=== PATIENT | male | born 1940 | race Caucasian/White ===

== ENCOUNTER 2017-07-28 13:05 | Outpatient (CLI) | payer MEDICARE, OTHER | END 2017-07-28 13:06 | disposition home or self-care (01) | LOC: CP 13:05 | PROVIDERS: ATTEND Internal Medicine Critical Care Medicine | DX: J67.9 Hypersensitivity pneumonitis due to unspecified organic dust (principal) | CPT/HCPCS: 94010; 94727; 94729 ==

== ENCOUNTER 2017-10-26 12:35 | Outpatient (CLI) | payer MEDICARE, OTHER ==
--- NOTE | 2017-10-28 11:05 | PFT ---
PATIENT HISTORY: HEIGHT: 67 IN WEIGHT:170 SMOKER: NO HOW LON PACK YEARS PACKS PER DAY PRODUCTIVE COUGH: LUNG DISEASE: PHYSICIAN INTERPRETATION FINAL REPORT: DLCO only was performed. Diffusing capacity is decreased at 61%. IMPRESSION reduced diffusing capacity. Rule out interstitial lung disease Project Technician: ALISA Ballet Master/Mistress: ALISA BLEVINS
== END 2017-10-26 12:36 | disposition home or self-care (01) ==
LOC: CP 12:35
PROVIDERS: ATTEND Internal Medicine
DX: J67.9 Hypersensitivity pneumonitis due to unspecified organic dust (principal)
CPT/HCPCS: 94729

== ENCOUNTER 2018-01-26 12:28 | Outpatient (CLI) | payer MEDICARE, OTHER | END 2018-01-26 12:29 | disposition home or self-care (01) | LOC: RAD 12:28 | PROVIDERS: ATTEND Internal Medicine Critical Care Medicine | DX: R06.00 Dyspnea, unspecified (principal); J98.4 Other disorders of lung | CPT/HCPCS: 71046 ==

== ENCOUNTER 2018-05-02 13:12 | Outpatient (CLI) | payer MEDICARE, OTHER ==
--- NOTE | 2018-05-02 15:08 | RAD ---
TWO VIEWS CHEST: Date: 05-02-18 Comparison: 06-09-17 History: Shortness of breath FINDINGS: There are increased linear interstitial densities noted throughout both lungs, chronic and grossly un changed. The lungs are hyperinflated suggested air trapping. There is no pneumothorax or pleural flui d and no focal consolidation or alveolar edema. IMPRESSION: Interstitial prominence and pulmonary hyperinflation, stable. Findings suggest COPD in the proper cli nical setting. No acute findings are noted. POS: DOUG
== END 2018-05-02 13:13 | disposition home or self-care (01) ==
LOC: RAD 13:12
PROVIDERS: ATTEND Internal Medicine Critical Care Medicine
DX: R06.00 Dyspnea, unspecified (principal); R91.8 Other nonspecific abnormal finding of lung field
CPT/HCPCS: 71046

== ENCOUNTER 2018-11-01 13:22 | Outpatient (CLI) | payer MEDICARE, OTHER ==
--- NOTE | 2018-11-01 16:01 | RAD ---
CHEST TWO VIEWS: HISTORY: Dyspnea. COMPARISON: 06/16/2018 FINDINGS: Slight elongation of the aorta. Normal cardiac silhouette. Pulmonary vessels and hilum are normal. Costophrenic angles are clear. Hyperinflation with chronic changes. No masses or consolidation. N o pneumothorax or osseous abnormalities. IMPRESSION: 1. Hyperinflation. 2. Chronic obstructive pulmonary disease. 3. Chronic changes. 4. No acute process. POS: C
== END 2018-11-01 13:23 | disposition home or self-care (01) ==
LOC: RAD 13:22
PROVIDERS: ATTEND Internal Medicine Critical Care Medicine
DX: R06.00 Dyspnea, unspecified (principal); R91.8 Other nonspecific abnormal finding of lung field; J44.9 Chronic obstructive pulmonary disease, unspecified
CPT/HCPCS: 71046

== ENCOUNTER 2019-07-11 10:11 | Outpatient (CLI) | payer MEDICARE, OTHER ==
--- NOTE | 2019-07-11 11:58 | ULT ---
BILATERAL RENAL ULTRASOUND: HISTORY: Chronic renal disease. FINDINGS: The right kidney measures 8.3 cm in length and the left kidney measures 11 cm in length. No hydroneph rosis is seen on either side. There is an 11 mm cyst in the left kidney. The urinary bladder has a vo lume of 56 mL with a wall thickness of 5 mm. Incidental note is made of multiple shadowing gallstones, massive splenomegaly, measuring 22.2 cm, an d an enlarged prostate, measuring 5.4 x 5.1 x 4.3 cm. IMPRESSION: 1. Left renal cyst. 2. Enlarged prostate. 3. Gallstones. 4. Splenomegaly. POS: OFF
== END 2019-07-11 10:12 | disposition home or self-care (01) ==
LOC: BICULT 10:11
PROVIDERS: ATTEND Internal Medicine Nephrology
DX: I12.9 Hypertensive chronic kidney disease with stage 1 through stage 4 chronic kidney disease, or unspecified chronic kidney disease (principal); N18.3 Chronic kidney disease, stage 3 (moderate); N28.1 Cyst of kidney, acquired; R16.1 Splenomegaly, not elsewhere classified; K80.80 Other cholelithiasis without obstruction; N40.0 Benign prostatic hyperplasia without lower urinary tract symptoms
CPT/HCPCS: 36415; 76770; 80048; 82570; 84156

== ENCOUNTER 2019-08-01 08:46 | Outpatient (CLI) | payer MEDICARE, OTHER ==
--- NOTE | 2019-08-01 09:44 | CT ---
CT abdomen and pelvis noncontrast HISTORY: Flank pain. Constipation. FINDINGS: Each renal collecting system, ureter, and urinary bladder are decompressed. There is a 0.1 cm calcification within a nondilated calyx at the anterior aspect of the right kidney. No stones on the left. Some irregularity of the anterior urinary bladder wall is similar in appearance to the prio r study. Prostate gland measures up to 6.6 cm transverse diameter. Bladder wall thickening has progressed slightly since the prior study and is likely related to chronic bladder outlet obstruction . Prominent calcification throughout the arterial structures. Lack of contrast decreases sensitivity of exam for other abnormalities. Appropriate amount of stool t hroughout the colon. Scattered diverticula of the colon without adjacent inflammation. No evidence of bowel obstruction. The 2.1 cm cyst within the anterior segment right liver lobe is stable. Spleen now measures up to 20. 5 cm greatest diameter. There is now anterior wedging of the T12 vertebral body with loss of height by approximately 30%. Minimal retropulsion of the superior endplate. It was not present on the prior study. IMPRESSION: Tiny nonobstructing right renal calculus. No evidence of stool retention or bowel obstruction. Severe splenomegaly. Cause is not evident. Chronic bladder outlet obstruction likely related to enlarged prostate gland. Diverticulosis. No evidence of diverticulitis. Interval compression of the T12 vertebral body with mild retropulsion of the superior endplate. Atherosclerosis.
== END 2019-08-01 08:47 | disposition home or self-care (01) ==
LOC: BICCT 08:46
PROVIDERS: ATTEND Family Medicine
DX: K59.00 Constipation, unspecified (principal); M54.5 Low back pain; N20.0 Calculus of kidney; R16.1 Splenomegaly, not elsewhere classified; K57.90 Diverticulosis of intestine, part unspecified, without perforation or abscess without bleeding; I70.90 Unspecified atherosclerosis; G95.20 Unspecified cord compression
CPT/HCPCS: 74176

== ENCOUNTER 2019-08-07 10:05 | Outpatient (CLI) | payer MEDICARE, OTHER ==
--- NOTE | 2019-08-07 12:10 | RAD ---
LUMBAR SPINE SERIES 2 VIEWS: Date: 08/07/19 HISTORY: Low back pain after lifting. COMPARISON: CT examination of abdomen and pelvis done 08/01/19. FINDINGS: The bones appear demineralized. The lumbar vertebral bodies are normal in height. Degenerative osteop hytes along the course of the spine are noted with mild disc narrowing at L5-S1. Moderate degenerativ e facet change of the lower lumbar spine seen. Once again, a wedge-shaped compression change of the T12 vertebral body is present with bony retropul valarie of the posterior superior margin of the vertebral body. The degree of compression appears slight ly increased as compared to the prior study. IMPRESSION: Suggestion of some worsening compression changes of the superior end plate compression fracture of T1 2. POS: DOUG
== END 2019-08-07 10:06 | disposition home or self-care (01) ==
LOC: BICRAD 10:05
PROVIDERS: ATTEND Family Medicine
DX: M54.5 Low back pain (principal); K59.00 Constipation, unspecified
CPT/HCPCS: 36415; 72100; 80053; 85025

== ENCOUNTER 2019-08-14 14:01 | Outpatient (CLI) | payer MEDICARE, OTHER ==
--- NOTE | 2019-08-14 16:06 | MRI ---
MRI lumbar spine noncontrast: HISTORY: Low back pain, after lifting COMPARISON: None FINDINGS: Diffuse T1 marrow signal hypointensity of the lumbar vertebra and the visualized sacrum. There is no significant STIR hyperintensity to suggest vertebral body edema. No MR evidence of ligamentous injury T1 marrow signal hypointensity with moderate loss of vertebral body height and retropulsion, along wi th T2 and STIR hyperintensity at the T12 level. Moderate compression fracture is noted, incompletely evaluated Appropriate signal intensity of the paraspinal muscles. Appropriate signal intensity visualized solid organs Unremarkable urinary bladder Conus medullaris terminates at the inferior aspect of L1 T11-T12: Mild central canal stenosis. There may be moderate bilateral foraminal narrowing T12 vertebral body moderate stenosis secondary to retropulsion. There is deformity of the distal thor acic cord. T12-L1:No significant central canal stenosis or significant neural foraminal narrowing L1-L2:No significant central canal stenosis or significant neural foraminal L2-L3:No significant central canal stenosis or significant neural foraminal narrowing L3-L4:Adequate disc hydration. Broad-based disc bulge, ligamentum flavum thickening and facet hypertr ophy result in mild central canal stenosis. Mild bilateral neural foraminal narrowing L4-L5:There appears to be edema in the disc space. Endplates are preserved. Broad-based disc bulge wi th minimal encroachment upon both subarticular zones. Mass effect without obscuration of either traversing L5 nerve root. Bilateral facet hypertrophy with fluid in both facet joints. Mild to modera te right and moderate left neural foraminal narrowing L5-S1:Desiccation with severe loss of disc space height. Broad-based disc bulge without any significa nt central canal stenosis. Moderate bilateral foraminal narrowing. 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 There does appear to be possible soft tissue signal intensity in the posterior urinary bladder. Nonspecific irregularity along the anterior bladder wall, near the bladder dome. Cystoscopy is recommended IMPRESSION: 1. Diffuse T1 marrow signal hypointensity. Correlate for a marrow infiltrative process versus anemia. 2. Moderate compression fracture at T12 with retropulsion. Moderate central canal stenosis. 3. Heterogeneous prostate gland. Correlate with serum PSA. 4. Abnormality with regards to the urinary bladder. Consider cystoscopy. CODE T Transcribed Date/Time: 08/14/2019 5:15 PM
== END 2019-08-14 14:02 | disposition home or self-care (01) ==
LOC: MRI 14:01
PROVIDERS: ATTEND Orthopaedic Surgery
DX: M54.5 Low back pain (principal); S22.089A Unspecified fracture of T11-T12 vertebra, initial encounter for closed fracture; M48.04 Spinal stenosis, thoracic region
CPT/HCPCS: 72148

== ENCOUNTER 2019-08-21 06:50 | Outpatient (CLI) | payer MEDICARE, OTHER ==
[2019-08-21 16:40] LABS: Hemoglobin 13.3 g/dL (14.0-18.0); Mean Corpuscular HGB CONC 32.4 g/dL (32.0-36.0); Mean Corpuscular Volume 83.3 fL (78.0-98.0); Mean Platelet Volume 9.6 fL (7.4-10.4); Platelet Count 256 thou/uL (130-400); RBC Distribution Width 20.6 % (11.5-14.5); Red Blood Cell (RBC) Count 4.92 mill/uL (4.70-6.10); White Blood Cell (WBC) Count 20.8 thou/uL (4.8-10.8)
[2019-08-21 16:50] LABS: Anion Gap 16 mmol/L (10-20); BUN (Urea Nitrogen) 28 mg/dL (8.4-25.7); Calc. Creatinine Clearance 0 mL/min (70-130); Calcium 9.4 mg/dL (7.8-10.44); Carbon Dioxide 21 mmol/L (23-31); Chloride 106 mmol/L (98-107); Estimated GFR-MDRD 37; Glucose 101 mg/dL (83-110); Potassium 4.9 mmol/L (3.5-5.1); Sodium 138 mmol/L (136-145)
[2019-08-21 16:57] LABS: Anisocytosis SLIGHT = 6-15 cells (100X) (0-5/hpf); Band 15 % (5-11); Dohle Bodies SLIGHT; Elliptocytes SLIGHT = 2-5 cells (100X) (0-1/hpf); Giant Platelets SLIGHT; Large Platelets SLIGHT; Lymphocytes 5 % (21-51); MDiff Complete? YES; Metamyelocyte 2 % (0-0); Monocytes 3 % (0-10); Myelocyte 1 % (0-0); Neutrophil 70 % (42-75); Ovalocytes SLIGHT = 2-5 cells (100X) (0-1/hpf); Platelet Morphology Comment Appears Adequate; Poikilocytosis SLIGHT = 6-15 cells (100X) (0-5/hpf); Polychromasia SLIGHT = 2-3 cells (100X) (0-2/hpf); Reactive Lymphocytes 2 % (0-10); Tear Drops SLIGHT = 2-5 cells (100X) (0-1/hpf); Vacuoles SLIGHT
--- NOTE | 2019-08-27 12:43 | EKG ---
Test Reason : Blood Pressure : / mmHG Vent. Rate : 051 BPM Atrial Rate : 264 BPM P-R Int : 000 ms QRS Dur : 096 ms QT Int : 442 ms P-R-T Axes : 030 008 010 degrees QTc Int : 407 ms Atrial flutter with variable A-V block with premature ventricular or aberrantly conducted complexes Minimal voltage criteria for LVH, may be normal variant Inferior infarct , age undetermined Abnormal ECG When compared with ECG of 12-MAY-2017 21:37, Significant changes have occurred Confirmed by KRISH GU (2) on 08/27/2019 12:43:40 PM Referred By: SAMRA Confirmed By:KRISH GU
== END 2019-08-21 06:51 | disposition home or self-care (01) ==
LOC: LABBT 06:50
PROVIDERS: ATTEND Internal Medicine Cardiovascular Disease
DX: Z01.818 Encounter for other preprocedural examination (principal); I48.92 Unspecified atrial flutter
CPT/HCPCS: 80048; 85025; 93005; 93010

== ENCOUNTER 2019-08-24 10:18 | Day surgery (SDC) | payer MEDICARE, OTHER ==
[2019-08-24] MEDS ORDERED: PROPOFOL 20 ML ONE (12:50)
--- NOTE | 2019-09-08 20:00 | ECHO ---
DATE OF SERVICE: 08/24/19 The Anesthesiology department provided with sedation for the patient. Please see their notes for det ails. After adequate sedation was achieved, transesophageal probe was inserted into the mouth and into the esophagus. Multiplanar views were obtained. Left ventricle is normal size, normal wall thickness. Systolic function appears to be normal. Estima crystal EF at 50-55%. Left atrium is dilated. Left atrial appendage is small but patent. No evidence of mass or thrombus. Right atrium is normal size. The right ventricle is normal size with normal systolic function. Aortic valve is sclerotic but opens well. No stenosis or regurgitation. Mitral valve is structurally normal. There is moderate to severe MR. Tricuspid valve is structurally normal. There is mild to moderate TR. Pulmonary valve not well seen. CONCLUSIONS: 1. Normal LV systolic function, EF at 50-55%. 2. Left atrial enlargement. 3. Moderate to severe MR. 4. Mild to moderate TR. 5. Sclerotic aortic valve. 6. Left atrial appendage is patent without mass or thrombus.
--- NOTE | 2019-09-08 20:08 | OP ---
DATE OF PROCEDURE: 08/24/19 SURGEON: Con Padilla M.D. PROCEDURE DIAGNOSIS: Atrial fibrillation. SUMMARY: The patient was brought to the outpatient area for planned cardioversion. KOLE cleared him from blood clots. He received a single 100 joules of synchronized shock delivered successfully converting him into sinu s rhythm. The anesthesiology department provided with sedation for the patient. Please see their note s for details. RECOMMENDATIONS: 1. Continued antiarrhythmic and anticoagulation. 2. Follow-up in the office in four weeks.
== END 2019-08-24 14:29 | disposition home or self-care (01) ==
LOC: CCL 10:18
PROVIDERS: ATTEND Internal Medicine Cardiovascular Disease
PROC: B24BZZ4 Ultrasonography of Heart with Aorta, Transesophageal (ICD-10-PCS; principal; 2019-08-24)
PROC: 5A2204Z Restoration of Cardiac Rhythm, Single (ICD-10-PCS; 2019-08-24)
DX: I48.91 Unspecified atrial fibrillation (principal); I48.92 Unspecified atrial flutter; I08.1 Rheumatic disorders of both mitral and tricuspid valves; I10 Essential (primary) hypertension; Z79.01 Long term (current) use of anticoagulants; Z79.899 Other long term (current) drug therapy; Z88.2 Allergy status to sulfonamides; Z88.5 Allergy status to narcotic agent; Z87.891 Personal history of nicotine dependence
CPT/HCPCS: 92960; 93312; J2704

== ENCOUNTER 2020-04-24 07:20 | Outpatient (CLI) | payer MEDICARE, OTHER | END 2020-04-24 07:21 | disposition home or self-care (01) | LOC: BICCT 07:20 | PROVIDERS: ATTEND Internal Medicine Cardiovascular Disease | DX: I71.2 Thoracic aortic aneurysm, without rupture (principal) | CPT/HCPCS: 82565 ==

== ENCOUNTER 2021-02-13 10:26 | Observation (INO) | payer MEDICARE, OTHER ==
[2021-02-13] MEDS ORDERED: Diazepam 5 MG TAB ONE (11:12)
[2021-02-13] MEDS ORDERED: HYDROcodone/Acetaminophen 5/325 mg Tablet ONE (11:12)
[2021-02-13 11:25] LABS: Hemoglobin 9.8 g/dL (14.0-18.0); Mean Corpuscular HGB CONC 31.4 g/dL (32.0-36.0); Mean Corpuscular Volume 92.5 fL (78.0-98.0); Mean Platelet Volume 8.4 fL (7.4-10.4); Platelet Count 385 thou/uL (130-400); RBC Distribution Width 22.7 % (11.5-14.5); Red Blood Cell (RBC) Count 3.37 mill/uL (4.70-6.10); White Blood Cell (WBC) Count 21.3 thou/uL (4.8-10.8)
[2021-02-13 11:45] LABS: ALT (SGPT) Less than 7 U/L (8-55); AST (SGOT) 9 U/L (5-34); Albumin 3.6 g/dL (3.4-4.8); Alkaline Phosphatase 125 U/L (40-110); Anion Gap 14 mmol/L (10-20); BUN (Urea Nitrogen) 61 mg/dL (8.4-25.7); Bilirubin, Total 0.7 mg/dL (0.2-1.2); Calc. Creatinine Clearance 0 mL/min (70-130); Carbon Dioxide 18 mmol/L (23-31); Chloride 107 mmol/L (98-107); Globulin 2.3 g/dL (2.4-3.5); Glucose 113 mg/dL (83-110); Potassium 5.2 mmol/L (3.5-5.1); Protein, Total 5.9 g/dL (5.8-8.1); Sodium 134 mmol/L (136-145)
[2021-02-13 12:15] LABS: Anisocytosis MODERATE=16-30 cells (100X) (0-5/hpf); Band 5 % (5-11); Lymphocytes 3 % (21-51); MDiff Complete? YES; Metamyelocyte 1 % (0-0); Monocytes 6 % (0-10); Myelocyte 1 % (0-0); Neutrophil 84 % (42-75); Ovalocytes MODERATE= 6-15 cells (100X) (0-1/hpf); Platelet Morphology Comment Appears Adequate; Polychromasia MODERATE = 3-4 cells (100X) (0-2/hpf); Tear Drops MODERATE= 6-15 cells (100X) (0-1/hpf)
[2021-02-13 13:05] LABS: Bilirubin Negative (Negative); Blood, Urine 3+ (Negative); Clarity Turbid (Clear); Glucose, Urine (Dipstick) Normal (Negative); Ketone, Urine Negative (Negative); Leukocyte 250 Leu/uL (Negative); Nitrite Negative (Negative); Protein, Urine (Dipstick) 30 mg/dL (Neg-Trace); RBC/HPF Greater than 50 HPF (0-3); Squamous Epithelial 0-3 HPF (0-3); Urobilinogen Normal mg/dL (Less than 2)
[2021-02-13 13:08] LABS: Bacteria/HPF 1+ HPF (None Seen)
[2021-02-13] MEDS ORDERED: cefTRIAXone\\ROCEPHIN 1 GM VIAL ONE (13:12)
[2021-02-13] MEDS ORDERED: HYDROcodone/Acetaminophen 5/325 mg Tablet PO PRN (16:56)
[2021-02-13] MEDS ORDERED: Ondansetron PF 4 MG/2 ML Vial IVP PRN (17:00)
[2021-02-13] MEDS ORDERED: Ondansetron ODT 4 MG TAB SL PRN (17:00)
[2021-02-13] MEDS ORDERED: Acetaminophen 325 MG TAB PO PRN (17:49)
[2021-02-13] MEDS ORDERED: HYDROcodone/Acetaminophen 7.5/325 mg Tablet PO PRN (17:49)
[2021-02-13] MEDS ORDERED: Zolpidem Tartrate 5 MG TAB PO PRN (17:49)
[2021-02-13] MEDS ORDERED: traZODone HCl 50 MG TAB PO PRN (17:54)
[2021-02-13 18:30] VITALS: BMI 21.4
[2021-02-13 18:33] LABS: Anion Gap 14 mmol/L (10-20); BUN (Urea Nitrogen) 52 mg/dL (8.4-25.7); Calc. Creatinine Clearance 24 mL/min (70-130); Calcium 7.9 mg/dL (7.8-10.44); Carbon Dioxide 16 mmol/L (23-31); Chloride 109 mmol/L (98-107); Glucose 96 mg/dL (83-110); Potassium 4.8 mmol/L (3.5-5.1); Sodium 134 mmol/L (136-145)
[2021-02-13] MEDS: HYDROcodone/Acetaminophen 10/325 mg Tablet PO PRN (19:41)
[2021-02-14 01:48] LABS: SARS-CoV-2 PCR by NAA Not Detected (NotDetected)
[2021-02-14 06:19] LABS: #Basophils 0.2 thou/uL (0.0-0.2); #Eosinphils 0.1 thou/uL (0.0-0.7); #Monocytes 0.3 thou/uL (0.11-0.59); %Basophils 0.9 % (0.0-1.0); %Eosinophils 0.4 % (0.0-10.0); %Lymphocytes 5.7 % (21.0-51.0); %Monocytes 1.8 % (0.0-10.0); %Neutrophils 91.2 % (42.0-75.0); Hemoglobin 8.9 g/dL (14.0-18.0); Mean Corpuscular HGB CONC 32.2 g/dL (32.0-36.0); Mean Corpuscular Hemoglobin 30.1 pg (27.0-31.0); Mean Corpuscular Volume 93.4 fL (78.0-98.0); Mean Platelet Volume 7.9 fL (7.4-10.4); Platelet Count 321 thou/uL (130-400); RBC Distribution Width 22.6 % (11.5-14.5); Red Blood Cell (RBC) Count 2.96 mill/uL (4.70-6.10); White Blood Cell (WBC) Count 17.5 thou/uL (4.8-10.8)
[2021-02-14 06:37] LABS: Anion Gap 15 mmol/L (10-20); BUN (Urea Nitrogen) 45 mg/dL (8.4-25.7); Calc. Creatinine Clearance 29 mL/min (70-130); Calcium 8.1 mg/dL (7.8-10.44); Carbon Dioxide 15 mmol/L (23-31); Chloride 111 mmol/L (98-107); Glucose 96 mg/dL (83-110); Potassium 4.9 mmol/L (3.5-5.1); Sodium 136 mmol/L (136-145)
[2021-02-14] MEDS: HYDROcodone/Acetaminophen 10/325 mg Tablet PO PRN (11:37)
[2021-02-14 12:50] VITALS: BP 122/76; TEMP 97.9
[2021-02-17] MEDS ORDERED: Lidocaine 4% PF 5 ML AMP NEB SCH (07:00)
== END 2021-02-14 16:45 | disposition home or self-care (01) ==
LOC: ERS 10:26 → ONC 14:06
PROVIDERS: ADMIT Family Medicine; ATTEND Hospitalist
DX: R91.8 Other nonspecific abnormal finding of lung field (principal); R59.0 Localized enlarged lymph nodes; G89.29 Other chronic pain; M54.9 Dorsalgia, unspecified; R53.1 Weakness; N40.0 Benign prostatic hyperplasia without lower urinary tract symptoms; K21.9 Gastro-esophageal reflux disease without esophagitis; E78.5 Hyperlipidemia, unspecified; D45 Polycythemia vera; R16.1 Splenomegaly, not elsewhere classified; C94.6 Myelodysplastic disease, not elsewhere classified; E87.5 Hyperkalemia; A41.9 Sepsis, unspecified organism; N20.0 Calculus of kidney; K76.89 Other specified diseases of liver; J43.9 Emphysema, unspecified; I12.9 Hypertensive chronic kidney disease with stage 1 through stage 4 chronic kidney disease, or unspecified chronic kidney disease; N18.4 Chronic kidney disease, stage 4 (severe); D63.1 Anemia in chronic kidney disease; S32.021A Stable burst fracture of second lumbar vertebra, initial encounter for closed fracture; S32.041A Stable burst fracture of fourth lumbar vertebra, initial encounter for closed fracture; S22.081A Stable burst fracture of T11-T12 vertebra, initial encounter for closed fracture; M48.04 Spinal stenosis, thoracic region; S22.060A Wedge compression fracture of T7-T8 vertebra, initial encounter for closed fracture; M19.90 Unspecified osteoarthritis, unspecified site; I48.91 Unspecified atrial fibrillation; F17.290 Nicotine dependence, other tobacco product, uncomplicated; Z79.01 Long term (current) use of anticoagulants; Z79.899 Other long term (current) drug therapy; Z88.2 Allergy status to sulfonamides; Z88.5 Allergy status to narcotic agent; Z20.822 Contact with and (suspected) exposure to COVID-19
CPT/HCPCS: 71250; 72128; 72131; 74177; 80048 ×2; 80053; 83605; 84484; 85025 ×2; 87040; 87086; 93005; 96365; 97116; 97139; 97530; 99285; G0378 ×3; U0003; U0005; 36415; 81003; 81015; 87635; J0696

== ENCOUNTER 2021-02-17 06:06 | Day surgery (SDC) | payer MEDICARE, OTHER ==
[2021-02-17] MEDS ORDERED: Fentanyl 100 MCG/2 ML VIAL ONE (06:44)
[2021-02-17] MEDS ORDERED: EPINEPHrine 1 MG/ML AMP ONE (06:59)
[2021-02-17] MEDS ORDERED: Lidocaine 1% (PF) 30 ML VIAL ONE (06:59)
[2021-02-17] MEDS ORDERED: Albuterol Sulfate 2.5 mg/3 ml Neb ONE (07:19)
[2021-02-17] MEDS ORDERED: Ondansetron PF 4 MG/2 ML Vial ONE (07:49)
[2021-02-17] MEDS ORDERED: Succinylcholine 200 MG/10 ml SYRINGE FS ONE (07:49)
[2021-02-17] MEDS ORDERED: Rocuronium Bromide 10 MG/ML (10ML VIAL) ONE (07:49)
[2021-02-17] MEDS ORDERED: Glycopyrrolate 0.2 MG/ML 5 ML SYRINGE ONE (07:49)
[2021-02-17] MEDS ORDERED: PROPOFOL 200 MG/20 ML VIAL ONE (07:49)
[2021-02-17] MEDS ORDERED: Dexamethasone 20 MG/5 ML VIAL ONE (07:49)
[2021-02-17] MEDS ORDERED: Lidocaine 1% PF 5 ML VIAL ONE (07:49)
[2021-02-17] MEDS ORDERED: SUGAMMADEX SODIUM 500 MG/5 ML VIAL ONE (08:16)
== END 2021-02-17 10:46 | disposition home or self-care (01) ==
LOC: SDC 06:06
PROVIDERS: ATTEND Internal Medicine Critical Care Medicine
PROC: 0BB48ZX Excision of Right Upper Lobe Bronchus, Via Natural or Artificial Opening Endoscopic, Diagnostic (ICD-10-PCS; principal; 2021-02-17)
PROC: 0BDC8ZX Extraction of Right Upper Lung Lobe, Via Natural or Artificial Opening Endoscopic, Diagnostic (ICD-10-PCS; 2021-02-17)
DX: C34.11 Malignant neoplasm of upper lobe, right bronchus or lung (principal); D45 Polycythemia vera; J44.9 Chronic obstructive pulmonary disease, unspecified; I48.91 Unspecified atrial fibrillation; N40.0 Benign prostatic hyperplasia without lower urinary tract symptoms; Z87.891 Personal history of nicotine dependence; Z79.01 Long term (current) use of anticoagulants; Z79.899 Other long term (current) drug therapy; Z88.2 Allergy status to sulfonamides; Z88.5 Allergy status to narcotic agent
CPT/HCPCS: 88112; 88305; 88341; 88342; J0171; J1100; J2001; J2405; J2704; J3010; J7611

== ENCOUNTER 2021-02-27 19:13 | Inpatient (IN) | payer MEDICARE, OTHER ==
[2021-02-27 20:01] LABS: Hemoglobin 9.8 g/dL (14.0-18.0); Mean Corpuscular HGB CONC 31.5 g/dL (32.0-36.0); Mean Corpuscular Hemoglobin 29.3 pg (27.0-31.0); Mean Platelet Volume 9.3 fL (7.4-10.4); Platelet Count 410 thou/uL (130-400); RBC Distribution Width 24.3 % (11.5-14.5); Red Blood Cell (RBC) Count 3.33 mill/uL (4.70-6.10)
[2021-02-27 20:16] LABS: Lymphocytes 12 % (21-51); MDiff Complete? YES; Metamyelocyte 3 % (0-0); Monocytes 3 % (0-10); Neutrophil 82 % (42-75); Platelet Morphology Comment Appears Increased; White Blood Cell (WBC) Count 25.7 thou/uL (4.8-10.8)
[2021-02-27 20:41] LABS: CKMB 1.7 ng/mL (0-6.6)
[2021-02-27 20:43] LABS: Albumin 3.7 g/dL (3.4-4.8)
[2021-02-27 20:44] LABS: Chloride 108 mmol/L (98-107); Sodium 139 mmol/L (136-145)
[2021-02-27 20:45] LABS: Calcium 9.2 mg/dL (7.8-10.44); Glucose 116 mg/dL (83-110)
[2021-02-27 20:46] LABS: Globulin 2.4 g/dL (2.4-3.5); Protein, Total 6.1 g/dL (5.8-8.1)
[2021-02-27 20:47] LABS: Anion Gap 16 mmol/L (10-20); Bilirubin, Total 0.7 mg/dL (0.2-1.2); Carbon Dioxide 20 mmol/L (23-31)
[2021-02-27 20:48] LABS: Alkaline Phosphatase 121 U/L (40-110)
[2021-02-27 20:49] LABS: Calc. Creatinine Clearance 0 mL/min (70-130)
[2021-02-27 20:50] LABS: AST (SGOT) 13 U/L (5-34); BUN (Urea Nitrogen) 72 mg/dL (8.4-25.7)
[2021-02-27 20:51] LABS: ALT (SGPT) 8 U/L (8-55); CK (CPK) 50 U/L (30-200)
[2021-02-28 00:18] LABS: Troponin I 0.041 ng/mL (< 0.028)
[2021-02-28 00:22] LABS: Bacteria/HPF 2+ HPF (None Seen); Bilirubin Negative (Negative); Blood, Urine 3+ (Negative); Clarity Extra Turbid (Clear); Glucose, Urine (Dipstick) Normal (Negative); Ketone, Urine Negative (Negative); Leukocyte 250 Leu/uL (Negative); Nitrite Negative (Negative); Protein, Urine (Dipstick) 50 mg/dL (Neg-Trace); RBC/HPF Greater than 50 HPF (0-3); Squamous Epithelial 0-3 HPF (0-3); Urobilinogen Normal mg/dL (Less than 2); WBC/HPF 21-50 HPF (0-3); pH, Urine 5.5 (5.0-9.0)
[2021-02-28] MEDS ORDERED: Ondansetron PF 4 MG/2 ML Vial IVP PRN (01:15)
[2021-02-28] MEDS ORDERED: Ondansetron ODT 4 MG TAB SL PRN (01:15)
[2021-02-28] MEDS ORDERED: Acetaminophen 325 MG TAB PO PRN (01:15)
[2021-02-28] MEDS: Fentanyl 100 MCG/2 ML VIAL SLOW IVP PRN (01:43)
[2021-02-28] MEDS: Sodium Chloride 0.9% 1,000 ML IV SCH ×2 (01:46→09:12)
[2021-02-28 01:53] VITALS: BMI 21.1
[2021-02-28 02:47] LABS: Troponin I Less than 0.010 ng/mL (< 0.028)
[2021-02-28 05:09] LABS: Anion Gap 12 mmol/L (10-20); BUN (Urea Nitrogen) 66 mg/dL (8.4-25.7); Calc. Creatinine Clearance 18 mL/min (70-130); Calcium 8.1 mg/dL (7.8-10.44); Carbon Dioxide 19 mmol/L (23-31); Chloride 111 mmol/L (98-107); Glucose 102 mg/dL (83-110); Potassium 4.6 mmol/L (3.5-5.1); Sodium 137 mmol/L (136-145)
[2021-02-28 05:12] LABS: Magnesium 1.7 mg/dL (1.6-2.6); Phosphorus 3.7 mg/dL (2.3-4.7)
[2021-02-28 05:30] LABS: Eosinophils 1 % (0-10); Hemoglobin 8.1 g/dL (14.0-18.0); Lymphocytes 9 % (21-51); MDiff Complete? YES; Mean Corpuscular HGB CONC 31.7 g/dL (32.0-36.0); Mean Corpuscular Hemoglobin 29.8 pg (27.0-31.0); Mean Platelet Volume 8.4 fL (7.4-10.4); Metamyelocyte 3 % (0-0); Monocytes 1 % (0-10); Neutrophil 86 % (42-75); Platelet Count 287 thou/uL (130-400); Platelet Morphology Comment Appears Adequate; RBC Distribution Width 22.4 % (11.5-14.5); Red Blood Cell (RBC) Count 2.72 mill/uL (4.70-6.10); White Blood Cell (WBC) Count 20.3 thou/uL (4.8-10.8)
[2021-02-28] MEDS: Cefepime 2 GM in Sodium Chloride 0.9% 100 ML IVPB SCH ×2 (05:30→16:30)
[2021-02-28] MEDS ORDERED: Enoxaparin Sodium 30 MG/0.3 ML SYRINGE SC SCH (09:00)
[2021-02-28] MEDS ORDERED: Furosemide 40 MG/4 ML VIAL SLOW IVP SCH (15:30)
[2021-02-28] MEDS: HYDROcodone/Acetaminophen 10/325 mg Tablet PO SCH ×2 (16:31→23:29)
[2021-02-28] MEDS: Megestrol Acetate 40 MG TAB PO SCH ×2 (16:31→20:52)
[2021-02-28 18:27] LABS: SARS-CoV-2 PCR by NAA Not Detected (NotDetected)
[2021-02-28 19:43] LABS: Strep pneumo Urine Ag NEGATIVE (NEGATIVE)
[2021-02-28] MEDS: Apixaban 5 MG TAB PO SCH (20:52)
[2021-02-28] MEDS: Flecainide 50 MG TAB PO SCH (20:53)
[2021-03-01] MEDS: Fentanyl 100 MCG/2 ML VIAL SLOW IVP PRN (02:26)
[2021-03-01] MEDS: Cefepime 2 GM in Sodium Chloride 0.9% 100 ML IVPB SCH ×2 (03:31→16:29)
[2021-03-01 04:51] LABS: Legionella Urinary Ag Negative (Negative)
[2021-03-01 05:34] LABS: Anion Gap 14 mmol/L (10-20); BUN (Urea Nitrogen) 64 mg/dL (8.4-25.7); CRP (Inflammatory) 7.43 mg/dL (= or < 0.5); Calc. Creatinine Clearance 22 mL/min (70-130); Calcium 8.5 mg/dL (7.8-10.44); Carbon Dioxide 19 mmol/L (23-31); Chloride 109 mmol/L (98-107); Glucose 107 mg/dL (83-110); Potassium 4.2 mmol/L (3.5-5.1); Sodium 138 mmol/L (136-145)
[2021-03-01 05:39] LABS: Band 10 % (5-11); Eosinophils 2 % (0-10); Hemoglobin 8.7 g/dL (14.0-18.0); Hypochromia SLIGHT = 6-15 cells (100X) (0-5/hpf); Lymphocytes 4 % (21-51); MDiff Complete? YES; Mean Corpuscular HGB CONC 29.9 g/dL (32.0-36.0); Mean Corpuscular Hemoglobin 28.1 pg (27.0-31.0); Mean Corpuscular Volume 93.8 fL (78.0-98.0); Mean Platelet Volume 8.6 fL (7.4-10.4); Monocytes 6 % (0-10); Neutrophil 78 % (42-75); Platelet Count 375 thou/uL (130-400); Platelet Morphology Comment Appears Adequate; RBC Distribution Width 22.3 % (11.5-14.5); Red Blood Cell (RBC) Count 3.09 mill/uL (4.70-6.10); White Blood Cell (WBC) Count 23.5 thou/uL (4.8-10.8)
[2021-03-01] MEDS: HYDROcodone/Acetaminophen 10/325 mg Tablet PO SCH (06:22)
[2021-03-01] MEDS: Hydroxyurea 500 MG CAP PO SCH (08:42)
[2021-03-01] MEDS: Flecainide 50 MG TAB PO SCH ×2 (08:42→20:15)
[2021-03-01] MEDS: Apixaban 5 MG TAB PO SCH ×2 (08:42→20:15)
[2021-03-01] MEDS: Metoprolol Tartrate 25 MG TAB PO SCH (08:43)
[2021-03-01] MEDS: Megestrol Acetate 40 MG TAB PO SCH ×4 (08:43→20:15)
[2021-03-01] MEDS: Terazosin HCl 5 MG CAP PO SCH (08:43)
[2021-03-01] MEDS ORDERED: HYDROmorphone 0.5 MG/0.5 ML SYRINGE SLOW IVP PRN (09:20)
[2021-03-01] MEDS ORDERED: Lorazepam 2 MG/ML VIAL SLOW IVP SCH (09:30)
[2021-03-01] MEDS: HYDROcodone/Acetaminophen 10/325 mg Tablet PO PRN ×2 (13:31→20:15)
[2021-03-02] MEDS: HYDROcodone/Acetaminophen 10/325 mg Tablet PO PRN ×2 (00:24→04:39)
[2021-03-02] MEDS: Cefepime 2 GM in Sodium Chloride 0.9% 100 ML IVPB SCH ×2 (03:54→16:10)
[2021-03-02] MEDS: Megestrol Acetate 40 MG TAB PO SCH ×4 (08:07→20:45)
[2021-03-02] MEDS: Apixaban 5 MG TAB PO SCH ×2 (08:07→20:45)
[2021-03-02] MEDS: Metoprolol Tartrate 25 MG TAB PO SCH (08:07)
[2021-03-02] MEDS: Hydroxyurea 500 MG CAP PO SCH (08:07)
[2021-03-02] MEDS: Flecainide 50 MG TAB PO SCH ×2 (08:07→20:45)
[2021-03-02] MEDS: Terazosin HCl 5 MG CAP PO SCH (08:08)
[2021-03-02] MEDS ORDERED: Fentanyl CADD 100 ML IV SCH (09:45)
[2021-03-02] MEDS ORDERED: Fentanyl CADD 100 ML IVPB PRN (09:56)
[2021-03-02] MEDS: Sodium Chloride 0.9% 1,000 ML IV SCH (13:02)
[2021-03-03] MEDS: Cefepime 2 GM in Sodium Chloride 0.9% 100 ML IVPB SCH ×2 (04:47→16:12)
[2021-03-03] MEDS: Apixaban 5 MG TAB PO SCH ×2 (09:22→20:55)
[2021-03-03] MEDS: Flecainide 50 MG TAB PO SCH ×2 (09:23→20:55)
[2021-03-03] MEDS: Metoprolol Tartrate 25 MG TAB PO SCH (09:23)
[2021-03-03] MEDS: Hydroxyurea 500 MG CAP PO SCH (09:23)
[2021-03-03] MEDS: Megestrol Acetate 40 MG TAB PO SCH ×4 (09:23→20:55)
[2021-03-03] MEDS: Terazosin HCl 5 MG CAP PO SCH (09:25)
[2021-03-03] MEDS ORDERED: Cyclobenzaprine 10 MG TAB PO PRN (10:18)
[2021-03-03] MEDS ORDERED: Polyethylene Glycol 3350 17 GM Packet PO PRN (10:18)
[2021-03-03] MEDS ORDERED: Gabapentin 100 MG CAP PO SCH (10:30)
[2021-03-03] MEDS: Dexamethasone 4 MG TAB PO SCH ×3 (11:04→20:55)
[2021-03-03] MEDS: HYDROcodone/Acetaminophen 5/325 mg Tablet PO PRN ×2 (11:04→16:11)
[2021-03-03] MEDS: Sodium Chloride 0.9% 1,000 ML IV SCH ×2 (14:28→20:56)
[2021-03-03] MEDS: Gabapentin 300 MG CAP PO SCH ×2 (20:55→22:53)
[2021-03-04] MEDS: Cefepime 2 GM in Sodium Chloride 0.9% 100 ML IVPB SCH ×2 (04:03→16:42)
[2021-03-04 05:44] LABS: Hemoglobin 8.4 g/dL (14.0-18.0); Mean Corpuscular HGB CONC 30.5 g/dL (32.0-36.0); Mean Corpuscular Hemoglobin 29.3 pg (27.0-31.0); Mean Corpuscular Volume 95.9 fL (78.0-98.0); Mean Platelet Volume 9.2 fL (7.4-10.4); Platelet Count 254 thou/uL (130-400); RBC Distribution Width 22.1 % (11.5-14.5); Red Blood Cell (RBC) Count 2.88 mill/uL (4.70-6.10); White Blood Cell (WBC) Count 18.7 thou/uL (4.8-10.8)
[2021-03-04 06:06] LABS: Anion Gap 14 mmol/L (10-20); BUN (Urea Nitrogen) 60 mg/dL (8.4-25.7); Calc. Creatinine Clearance 23 mL/min (70-130); Calcium 8.8 mg/dL (7.8-10.44); Carbon Dioxide 17 mmol/L (23-31); Chloride 114 mmol/L (98-107); Glucose 151 mg/dL (83-110); Potassium 4.9 mmol/L (3.5-5.1); Sodium 140 mmol/L (136-145)
[2021-03-04 06:08] LABS: Band 15 % (5-11); Lymphocytes 1 % (21-51); MDiff Complete? YES; Metamyelocyte 3 % (0-0); Monocytes 1 % (0-10); Neutrophil 80 % (42-75); Platelet Morphology Comment Appears Adequate
[2021-03-04] MEDS: Flecainide 50 MG TAB PO SCH ×2 (08:34→20:34)
[2021-03-04] MEDS: Dexamethasone 4 MG TAB PO SCH ×4 (08:34→20:33)
[2021-03-04] MEDS: Apixaban 5 MG TAB PO SCH ×2 (08:34→20:34)
[2021-03-04] MEDS: Gabapentin 300 MG CAP PO SCH ×2 (08:35→20:33)
[2021-03-04] MEDS: Terazosin HCl 5 MG CAP PO SCH (08:37)
[2021-03-04] MEDS: Hydroxyurea 500 MG CAP PO SCH (08:38)
[2021-03-04] MEDS: Metoprolol Tartrate 25 MG TAB PO SCH (08:39)
[2021-03-04] MEDS: Megestrol Acetate 40 MG TAB PO SCH ×4 (08:39→20:33)
[2021-03-04] MEDS: HYDROcodone/Acetaminophen 5/325 mg Tablet PO PRN (16:43)
[2021-03-05] MEDS: HYDROcodone/Acetaminophen 5/325 mg Tablet PO PRN ×2 (02:27→11:41)
[2021-03-05] MEDS: Cefepime 2 GM in Sodium Chloride 0.9% 100 ML IVPB SCH (03:56)
[2021-03-05 04:56] LABS: Band 9 % (5-11); Elliptocytes SLIGHT = 2-5 cells (100X) (0-1/hpf); Hemoglobin 8.3 g/dL (14.0-18.0); Hypochromia SLIGHT = 6-15 cells (100X) (0-5/hpf); Lymphocytes 1 % (21-51); MDiff Complete? YES; Mean Corpuscular HGB CONC 30.9 g/dL (32.0-36.0); Mean Corpuscular Hemoglobin 29.7 pg (27.0-31.0); Mean Corpuscular Volume 96.2 fL (78.0-98.0); Mean Platelet Volume 8.9 fL (7.4-10.4); Monocytes 2 % (0-10); Neutrophil 88 % (42-75); Platelet Count 242 thou/uL (130-400); Platelet Morphology Comment Appears Adequate; RBC Distribution Width 21.6 % (11.5-14.5); White Blood Cell (WBC) Count 21.5 thou/uL (4.8-10.8)
[2021-03-05 05:01] LABS: Anion Gap 16 mmol/L (10-20); BUN (Urea Nitrogen) 77 mg/dL (8.4-25.7); Calc. Creatinine Clearance 20 mL/min (70-130); Calcium 8.6 mg/dL (7.8-10.44); Carbon Dioxide 18 mmol/L (23-31); Chloride 110 mmol/L (98-107); Glucose 164 mg/dL (83-110); Potassium 5.5 mmol/L (3.5-5.1); Sodium 138 mmol/L (136-145)
[2021-03-05] MEDS: Gabapentin 300 MG CAP PO SCH (09:50)
[2021-03-05] MEDS: Metoprolol Tartrate 25 MG TAB PO SCH (09:50)
[2021-03-05] MEDS: Flecainide 50 MG TAB PO SCH (09:50)
[2021-03-05] MEDS: Apixaban 5 MG TAB PO SCH (09:50)
[2021-03-05] MEDS: Hydroxyurea 500 MG CAP PO SCH (09:50)
[2021-03-05] MEDS: Dexamethasone 4 MG TAB PO SCH ×3 (09:50→16:29)
[2021-03-05] MEDS: Terazosin HCl 5 MG CAP PO SCH (09:50)
[2021-03-05] MEDS: Megestrol Acetate 40 MG TAB PO SCH ×3 (09:50→16:29)
[2021-03-05] MEDS ORDERED: Sodium Chloride 0.9% 1,000 ML IV SCH (10:30)
[2021-03-05] MEDS ORDERED: cefTRIAXone\\ROCEPHIN 1 GM in Sodium Chloride 0.9% 100 ML IVPB SCH (11:00)
[2021-03-05 16:16] VITALS: BP 122/69; TEMP 98.4
== END 2021-03-05 16:51 | DRG 871 ==
LOC: ERS 19:13 → 2NO 23:09
PROVIDERS: ADMIT Student in an Organized Health Care Education/Training Program; ATTEND Internal Medicine
DX: A41.9 Sepsis, unspecified organism (principal); J96.01 Acute respiratory failure with hypoxia; N39.0 Urinary tract infection, site not specified; E44.0 Moderate protein-calorie malnutrition; N17.9 Acute kidney failure, unspecified; C34.91 Malignant neoplasm of unspecified part of right bronchus or lung; C94.6 Myelodysplastic disease, not elsewhere classified; R64 Cachexia; M48.54XA Collapsed vertebra, not elsewhere classified, thoracic region, initial encounter for fracture; Z20.822 Contact with and (suspected) exposure to COVID-19; D45 Polycythemia vera; N18.9 Chronic kidney disease, unspecified; I12.9 Hypertensive chronic kidney disease with stage 1 through stage 4 chronic kidney disease, or unspecified chronic kidney disease; E78.5 Hyperlipidemia, unspecified; K59.00 Constipation, unspecified; G89.29 Other chronic pain; E86.0 Dehydration; E78.1 Pure hyperglyceridemia; Z88.5 Allergy status to narcotic agent; Z88.2 Allergy status to sulfonamides; Z79.01 Long term (current) use of anticoagulants; Z79.899 Other long term (current) drug therapy; Z68.21 Body mass index [BMI] 21.0-21.9, adult; Z90.49 Acquired absence of other specified parts of digestive tract; Z98.890 Other specified postprocedural states; Z86.711 Personal history of pulmonary embolism
CPT/HCPCS: 36415; 36416; 70551; 71045; 72146; 72148; 80048; 80053; 81003; 81015; 82550; 82553; 83605; 83735; 83880; 84100; 84145; 84484; 85025; 86140; 86850; 86900; 86901; 87040; 87086; 87449; 87899; 93005; J0692; J0696; J1650; J1940; J3010; J3490; J8540; S0179; U0003; U0005